=== PATIENT | female | born 1950 | race Caucasian/White ===

== ENCOUNTER 2017-12-22 07:57 | Day surgery (SDC) | payer OTHER ==
[2017-12-22] MEDS: BETADINE OPTH PREP OP PRN ×2 (09:25→09:45)
[2017-12-22] MEDS: TETRACAINE 0.5% UNIT-DOSE OP PRN ×3 (09:25→09:57)
[2017-12-22] MEDS: CYCLOGYL 2% OPTH OP PRN ×3 (09:26→09:36)
[2017-12-22] MEDS ORDERED: LIDOCAINE 1%/PHENYLEPHRINE 1.5% BSS (SURGERY) INTRAOCULA ONE (09:33)
[2017-12-22] MEDS ORDERED: ZOFRAN 4 MG/2 ML IVP ONE (09:33)
[2017-12-22] MEDS ORDERED: LIDOCAINE 1% 20 ML MDV ID STA (09:33)
[2017-12-22] MEDS ORDERED: BRIMONIDINE TARTRATE 0.2% OPTH SOL OP PRN (09:33)
[2017-12-22] MEDS ORDERED: DEX-MOXI-KETOR OPTH INJ 1/0.5/0.4 MG/ML IO ONE (09:33)
[2017-12-22] MEDS ORDERED: BSS WITH EPINEPHRINE OP ONE (09:33)
[2017-12-22] MEDS ORDERED: SUBLIMAZE ONE (09:48)
[2017-12-22] MEDS ORDERED: VERSED ONE (09:48)
[2017-12-22] MEDS ORDERED: ZOFRAN 4 MG/2 ML ONE (09:48)
[2017-12-22] MEDS ORDERED: DIPRIVAN 20 ML VIAL IVP ONE (09:48)
[2017-12-22 11:12] VITALS: TEMP 97.9
[2017-12-23 14:50] VITALS: BP 124/68
== END 2017-12-22 10:55 | disposition home or self-care (01) ==
LOC: SURG 07:57
PROVIDERS: ATTEND Ophthalmology
DX: H25.812 Combined forms of age-related cataract, left eye (principal)

== ENCOUNTER 2018-01-26 07:49 | Day surgery (SDC) | payer OTHER ==
[2018-01-26] MEDS: BETADINE OPTH PREP OP PRN ×2 (08:10→08:42)
[2018-01-26] MEDS: TETRACAINE 0.5% UNIT-DOSE OP PRN ×2 (08:10→08:42)
[2018-01-26] MEDS: CYCLOGYL 2% OPTH OP PRN ×4 (08:11→08:21)
[2018-01-26] MEDS ORDERED: ZOFRAN 4 MG/2 ML IVP ONE (08:16)
[2018-01-26] MEDS ORDERED: BSS WITH EPINEPHRINE OP ONE (08:16)
[2018-01-26] MEDS ORDERED: DEX-MOXI-KETOR OPTH INJ 1/0.5/0.4 MG/ML IO ONE (08:16)
[2018-01-26] MEDS ORDERED: BRIMONIDINE TARTRATE 0.2% OPTH SOL OP PRN (08:16)
[2018-01-26] MEDS ORDERED: LIDOCAINE 1%/PHENYLEPHRINE 1.5% BSS (SURGERY) INTRAOCULA ONE (08:16)
[2018-01-26 08:19] VITALS: TEMP 98.6
[2018-01-26] MEDS: LIDOCAINE 1% 20 ML MDV ID STA ×2 (08:30→12:40)
[2018-01-26] MEDS ORDERED: SUBLIMAZE ONE (08:55)
[2018-01-26] MEDS ORDERED: ZOFRAN 4 MG/2 ML ONE (08:55)
[2018-01-26] MEDS ORDERED: VERSED ONE (08:55)
[2018-01-26] MEDS ORDERED: MIOSTAT INTRAOCULA ONE (09:18)
[2018-01-26 14:54] VITALS: BP 125/66
== END 2018-01-26 10:05 | disposition home or self-care (01) ==
LOC: SURG 07:49
PROVIDERS: ATTEND Ophthalmology
DX: H25.811 Combined forms of age-related cataract, right eye (principal)